=== PATIENT | male | born 1940 | race Caucasian/White ===

== ENCOUNTER 2018-04-23 12:51 | Inpatient (IN) ==
--- NOTE | 2018-04-23 14:12 | EKG Report ---
Test Performed on : 04/23/2018 1:43:08 PM Test Reason : SOB Blood Pressure : / mmHG Vent. Rate : 095 BPM Atrial Rate : 095 BPM P-R Int : 138 ms QRS Dur : 070 ms QT Int : 378 ms P-R-T Axes : 094 -52 052 degrees QTc Int : 475 ms Sinus rhythm. with occasional premature ventricular complexes. Left axis deviation Low voltage QRS Cannot rule out Inferior infarct (cited on or before 28-FEB-2009) Abnormal ECG When compared with ECG of 28-FEB-2009 10:48, Significant changes have occurred Unconfirmed Result
[2018-04-23 14:26] LABS: BASO# 0.01 X1000 (0.0-0.2); BASO% 0.1 % (0.0-0.8); EOS# 0.15 X1000 (0.0-0.7); EOS% 1.7 % (0.0-10.0); HEMATOCRIT 43.5 % (42.0-52.0); HEMOGLOBIN 12.4 g/dL (14.0-18.0); IMM GRAN# 0.04 X1000 (0.0-0.04); IMM GRAN% 0.5 % (0.0-0.5); LYMPH% 12.4 % (20.5-51.1); MCH 24.8 PG (27-31); MCHC 28.5 g/dL (33-37); MCV 86.8 FL (81-99); MONO# 0.96 X1000 (0.11-0.59); MONO% 10.8 % (1.7-9.3); MPV 11.1 FL (7.4-10.4); NEUT# 6.62 X1000 (1.4-6.5); NEUT% 74.5 % (42.2-75.2); PLT 195 X1000 (130-400); RBC 5.01 XMIL (4.7-6.1); WBC 8.88 X1000 (4.8-10.8)
--- NOTE | 2018-04-23 14:30 | Diag Imaging Result Doc PS360 ---
EXAM: CHEST-PORTABLE HISTORY: SOB TECHNIQUE: Portable chest COMPARISON: None. FINDINGS: The lungs are well expanded. The heart is not enlarged. The vessels are not distended. There are dense infiltrates in the right lung base. No effusion identified. IMPRESSION: Right lower lobe pneumonia Electronically signed by Brett Newby 04/23/2018 2:27 PM
[2018-04-23 14:31] LABS: INR 1.17; PROTIME 15.8 Seconds (11.0-16.0)
[2018-04-23 14:32] LABS: PTT 32.8 Seconds (22.3-41.8)
[2018-04-23 14:41] LABS: AGAP 7; ALB/GLOB RATIO 1.4; ALBUMIN 3.8 g/dL (3.5-5.0); ALKALINE PHOSPHATASE 110 U/L (32-122); BUN 19 mg/dL (8-22); CALCIUM 7.7 mg/dL (8.8-10.2); CHLORIDE 100 mmol/L (98-107); CK PROFILE 62 U/L (24-204); COSMO 280; CREATININE 0.9 mg/dL (0.7-1.2); ESTIMATED GFR > 60; GLUCOSE 108 mg/dL (70-104); GOT 33 U/L (10-34); GPT 39 U/L (10-44); POTASSIUM 5.2 mmol/L (3.5-5.1); SODIUM 139 mmol/L (136-145); TCO2 32 mmol/L (25-35); TOTAL BILIRUBIN 1.01 mg/dL (0.20-1.00); TOTAL PROTEIN 6.6 g/dL (6.3-8.3)
[2018-04-23] MEDS ORDERED: LASIX IV ONE (15:10)
--- NOTE | 2018-04-23 15:39 | PROVIDER DOCUMENTATION ---
This chart was entered by Gabriela Carranza Scribe, acting as scribe for Pete Newberry MD. HPI-Respiratory General - General Chief Complaint: Shortness of Breath Stated Complaint: gi bleed Time Seen by Provider: 04/23/18 14:11 Source: patient, family Allergies/Adverse Reactions: Patient Allergies Allergy/AdvReac Type Severity Reaction Status Date / Time grapefruit Allergy Unknown Verified 04/23/18 13:51 Home Medications: Home Medication List Medication Instructions Recorded Confirmed Last Taken Type Aspirin [Deneen Chewable Aspirin] 81 mg PO DAILY 04/23/18 04/23/18 04/23/18 History - History of Present Illness-Resp Nature of Presenting Problem: 78 y/o male patient presents with c/o shortness of breath , worsening x the last week with swelling in extremities. He also has orthopnea. No fever. He fell about a week ago and injured right side of chest wall. No cough Quality of Pain: reports: fullness Severity in ED: reports: moderate Onset/Duration: reports: 1 week ago Timing: reports: still present, intermittent Context: reports: recent URI Cough Quality/Degree: reports: dry cough Current Respiratory Medication Therapy: Initiated see nurses note Modifying Factors: worse with: exertion, coughing Associated Symptoms: reports: cough, shortness of breath, other (BLE edema and abdominal edema). denies: chest pain/soreness, wheezing Similar Symptoms Previously?: Yes Recently seen or treated by another doctor?: No Review of Systems - Adult - REVIEW OF SYSTEMS - ADULT Constitutional: reports: no symptoms reported Eyes: reports: no symptoms reported Ears, Nose, Mouth & Throat: reports: no symptoms reported Cardiovascular: denies: chest pain, palpitations Respiratory: reports: see HPI, cough, dyspnea on exertion, shortness of breath. denies: wheezing Gastrointestinal: reports: see HPI, other (abdominal edema). denies: abdominal pain, diarrhea, nausea, vomiting Genitourinary: reports: no symptoms reported Musculoskeletal: denies: back pain, neck pain Integumentary: reports: no symptoms reported Neurological: denies: dizziness/vertigo, headache/migraines Psychiatric: reports: no symptoms reported Endocrine: reports: no symptoms reported Hematologic/Lymphatic: reports: no symptoms reported Allergic/Immunologic: reports: no symptoms reported All Other Systems: Reviewed and Negative Past History - Adult - PAST MEDICAL HISTORY-ADULT Review of Records: reports: Nursing Assessment Review, Medications Reviewed, Social history reviewed & non-contributory. Major Childhood Illnesses: reports: denies history Cardiovascular: reports: denies history Respiratory: reports: denies history Gastrointestinal: reports: denies history Genitourinary: reports: prostatitis Musculoskeletal: reports: denies history Neurological: reports: denies history Psychiatric: reports: denies history Endocrine/Immune: reports: denies history Other Conditions: reports: cataract/glaucoma - PRIOR SURGERIES/PROCEDURES Surgical/Procedure History: reports: reviewed, not pertinent - IMMUNIZATION STATUS Childhood Immunizations: See Nurse Assessment Flu Vaccine: See Nurse Assessment - FAMILY HISTORY Family History: reviewed, not pertinent - SOCIAL HISTORY Smoking: greater than 1 pack/day Substance Use: alcohol Alcohol Use Frequency: occasionally Number of drinks per typical drinking period:: 2 drinks Living Situation: family Physical Exam-General - PHYSICAL EXAM-ADULT Initial Vital Signs Reviewed: Yes - CONSTITUTIONAL General Appearance: alert, mild distress, obese - EYES Eyes: PERRL/EOMI, pink conjunctivae - HEAD, EARS, NOSE, MOUTH & THROAT HENMT: moist mucous membranes - NECK Neck: non-tender, full range of motion, supple, normal inspection - RESPIRATORY Respiratory: decreased breath sounds, other (on oxygen via nasal canulla) - CARDIOVASCULAR Cardiovascular: normal peripheral pulses, regular rate, rhythm - GASTROINTESTINAL (ABDOMEN) Abdominal Exam: normal bowel sounds, soft, other (pitting edema in abdominal wall) - LYMPHATIC Lymphatic: no adenopathy - MUSCULOSKELETAL Back Exam: normal inspection, no CVA tenderness, no vertebral tenderness Extremity: normal range of motion, pedal edema (4 + bilateral), swelling (BLE edema 4+) - SKIN Integumentary: normal color, normal turgor, warm/dry - NEUROLOGIC Neurologic: grossly normal, no motor/sensory deficits - PSYCHIATRIC Psych/Mental Status: normal mood/affect, normal thought content, normal thought process, oriented x 3 Progress - PLAN OF CARE/RESULTS Progress/Plan/Lab Results: Vital Signs - 8 hr 04/23/18 13:05 04/23/18 13:58 04/23/18 14:13 Temperature 98.2 F 98.1 F Pulse Rate 62 84 17 L Respiratory Rate 20 18 86 H Blood Pressure 122/83 109/68 129/82 O2 Sat by Pulse Oximetry 95 96 96 Laboratory Results - last 24 hr 04/23/18 04/23/18 04/23/18 14:00 14:00 14:00 WBC 8.88 RBC 5.01 Hgb 12.4 L Hct 43.5 MCV 86.8 MCH 24.8 L MCHC 28.5 L RDW Std Deviation 17.0 H Plt Count 195 MPV 11.1 H Immature Gran % (Auto) 0.5 Neut % (Auto) 74.5 Lymph % (Auto) 12.4 L [place] % (Auto) 10.8 H Eos % (Auto) 1.7 Baso % (Auto) 0.1 Immature Gran # (Auto) 0.04 Neut # (Auto) 6.62 H Lymph # (Auto) 1.10 L [place] # (Auto) 0.96 H Eos # (Auto) 0.15 Baso # (Auto) 0.01 Segmented Neutrophils Not Reportable PT INR PTT (Actin FS) Sodium 139 Potassium 5.2 H Chloride 100 Carbon Dioxide 32 Anion Gap 7 BUN 19 Creatinine 0.9 Estimated GFR/1.73 m2 > 60 BUN/Creatinine Ratio 21 Glucose 108 H Calculated Osmolality 280 Calcium 7.7 L Total Bilirubin 1.01 H AST 33 ALT 39 Alkaline Phosphatase 110 Creatine Kinase 62 Troponin T Ncx-[id number] Pept 1464 H Total Protein 6.6 Albumin 3.8 Globulin 2.8 Albumin/Globulin Ratio 1.4 04/23/18 04/23/18 14:00 14:00 WBC RBC Hgb Hct MCV MCH MCHC RDW Std Deviation Plt Count MPV Immature Gran % (Auto) Neut % (Auto) Lymph % (Auto) [place] % (Auto) Eos % (Auto) Baso % (Auto) Immature Gran # (Auto) Neut # (Auto) Lymph # (Auto) [place] # (Auto) Eos # (Auto) Baso # (Auto) Segmented Neutrophils PT 15.8 INR 1.17 PTT (Actin FS) 32.8 Sodium Potassium Chloride Carbon Dioxide Anion Gap BUN Creatinine Estimated GFR/1.73 m2 BUN/Creatinine Ratio Glucose Calculated Osmolality Calcium Total Bilirubin AST ALT Alkaline Phosphatase Creatine Kinase Troponin T < 0.010 Fmp-X-Kofeoggfste Pept Total Protein Albumin Globulin Albumin/Globulin Ratio Orders Category Date Time Status Cardiac Monitoring DIRECTED Care 04/23/18 13:54 Active Oxygen Therapy- ED Nursing DIRECTED Care 04/23/18 13:54 Active Saline Loc NOW Care 04/23/18 13:54 Active CHEST-PORTABLE [RAD] Stat Exams 04/23/18 13:55 Completed CBC WITH ELECTRONIC DIFF [HEME] Stat Lab 04/23/18 14:00 Completed CK PROFILE [SP CHEM] Stat Lab 04/23/18 14:00 Completed COMPREHENSIVE METABOLIC PANEL [CHEM] Stat Lab 04/23/18 14:00 Completed PRO B-NATRIURETIC PEPTIDE Stat Lab 04/23/18 14:00 Completed PROTIME WITH INR [COAG] Stat Lab 04/23/18 14:00 Completed PTT [COAG] Stat Lab 04/23/18 14:00 Completed TROPONIN T Stat Lab 04/23/18 14:00 Completed URINALYSIS W/POSS RFLX CULT [URINALYSIS] Stat Lab 04/23/18 15:11 Uncollected Furosemide [Lasix] Med 04/23/18 15:10 Discontinued 60 mg IV NOW ONE CP/SOB/Palp >45 yrs of Age Stat Oth 04/23/18 13:53 Ordered EKG [EKG] Stat Ther 04/23/18 13:54 Draft Result Diagrams: 04/23/18 14:00 04/23/18 14:00 - REASSESSMENT Reassessment #1 Time Reassessed: 15:29 Status: unchanged - EKG 1 Time of EKG reading by physician:: 13:43 EKG Read and Signed by:: Pete Newberry EKG Interpretation (*Must complete 3 of following elements*): Abnormal Rate: 95 Rhythm: SR with occasional pvc [place]: left (deviation) QRS: other (low voltage qrs) [place] Interval: normal ST Wave: normal Comments: cannot rule out inferior infarct, age undetermined - XRAY 1 XRAY: Bilateral XRAY Study: Chest (EXAM: CHEST-PORTABLE HISTORY: SOB TECHNIQUE: Portable chest COMPARISON: None. FINDINGS: The lungs are well expanded. The heart is not enlarged. The vessels are not distended. There are dense infiltrates in the right lung base. No effusion identified. IMPRESSION: Right lower lobe pneumonia Electronically signed by Brett Newby 04/23/2018 2:27 PM 04/23 Interpreting Physician: Brett Newby MD Dictated Date/Time: 04/23/189 cc: Ubaldo Rodriguez MD;) Impression: Abnormal - CONSULTS/PCP/HOSPITALIST Notification #1 *Consult/PCP/Hospitalist*: hospitalist dr hickman /JOS Rodriguez Time Discussed: 15:29 Consult Disposition: Admit Departure - Departure Date of Disposition Decision: 04/23/18 Time of Disposition Decision: 15:39 DIAGNOSIS: Anasarca, Shortness of breath, Infiltrate of lung present on chest x-ray Fluid overload Qualifiers: Hypervolemia type: other Qualified Code(s): E87.79 - Other fluid overload Disposition: ADMITTED INPATIENT 09 Certified Medical Emergency: Emergent Condition: Serious Referrals and Follow-Ups: Marcia Hernandez MD [Primary Care Provider] - - Critical Care Note This patient required my direct & personal management of CC.: No Attestation - Physician/ DONNA Attestation Patient care was provided by Advanced Practice Provider:: No The physician spent face to face time with patient:: Yes Advanced Practice Provider documentation review:: Supervising physician onsite and consulted in the evaluation and care of this patient. The physician did have a face to face encounter with the patient. This chart was documented by the indicated scribe, (Gabriela Carranza Scribe) and accurately reflects the services I performed and decisions made by me, Pete Newberry MD, as attested by the provider's signature.
[2018-04-23] MEDS ORDERED: TYLENOL PO PRN (16:05)
[2018-04-23] MEDS ORDERED: ZOFRAN IV PRN (16:05)
--- NOTE | 2018-04-23 16:38 | HISTORY AND PHYSICAL ---
HISTORY OF PRESENT ILLNESS: This is a 78-year-old who has not been admitted here before. He has been seen by Dr. Valdivia, and I think most recently he has signed up to see Dr. Martell Asencio although he states he has not seen him yet. PAST MEDICAL HISTORY: 1. Prostate cancer, status post radical prostatectomy. 2. Glaucoma, left eye. 3. Suspect chronic obstructive pulmonary disease. Long history of smoking since age 18; 1-1/2 pack of cigarettes. No other known medical history. SURGICAL HISTORY: 1. Status post prostatectomy. 2. Status post tonsillectomy. 3. Adenoidectomy. SOCIAL HISTORY: Smokin-1/2 pack history since age 18. He stopped 04/15/2018 when he started feeling bad. He presents stating he feels bad and has swelling in his legs all the way up to his abdomen since 04/15/2018. It is now 04/23/2018. He does not drink any alcohol; 1 drink on 's Jennifer. He is of [place] descent. FAMILY HISTORY: Mother with history of CVA versus myocardial infarction. Not sure which, but she suddenly. History of breast cancer. History of vascular glaucoma. Father history of myocardial infarction. REVIEW OF SYSTEMS: General: He denies chest pain or palpitations. Respiratory: He reports a little shortness of breath but his main concern is his swelling in his lower extremities. He did not describe paroxysmal nocturnal dyspnea or any definite orthopnea. HEENT: He has history of glaucoma. He has not noticed any change recently or did not report any change in his vision or hearing acuity. No neck pain or adenopathy. He has not reported any weight gain or loss, but I am not sure he is recording it, but he does note that he has had more fluid on his lower extremities and abdomen. Gastrointestinal/Genitourinary: Not reported any change in his urinary habits or in his bowel movements. Endocrinologic/Hematologic: No significant history. Musculoskeletal/Neurologic: No focal complaints of pain or dysfunction. PHYSICAL EXAMINATION: GENERAL: In the emergency room, he is awake and alert. The family is at the bedside; I believe his daughter and son. VITAL SIGNS: His temperature is 98.1, pulse 91, respirations 20, blood pressure 123/99. Weight is 222 pounds. Height is 5 feet 7 inches. His pupils are equal. NECK: No distended neck veins. I could not appreciate any elevation of CVP. CVP appears to be less than 8 cm. I did not appreciate any cervical or supraclavicular adenopathy. Conjunctiva was pink. Mucous membranes were pink and moist. No thyromegaly. LUNGS: Clear in all lung delaney. Decreased breath sounds in both bases. PMI was diffuse but he appeared to be in sinus rhythm. I did not appreciate any murmur or obvious S3 or S4 gallop. ABDOMEN: Nontender. Slightly distended. Did not appreciate any shifting fluid or definite ascites but seems like you can palpate edema all the way up around his umbilicus area from his feet all the way up his thighs with pitting edema. SKIN: Warm and dry, and I would say he has some 1+ to 2+ pitting edema in his feet all the way up to his umbilicus. LABORATORIES: White blood cell count 8880, hematocrit 43, platelet count 195,000. Sodium 139, potassium 5.2, chloride 100. BUN 19, creatinine 0.9, calculated osmolality 280. Calcium 7.7, AST 33, ALT 39, alkaline phos 110. CPK was 62. ProBNP 1464. Total protein 6.6, albumin 3.8. ProTime 15.8 with an INR of 1.17. PTT was 32. Chest x-ray: Right lower lobe pneumonia. Appears to have a dense infiltrate in the right lung base. ASSESSMENT AND PLAN: 1. Right lower lobe pneumonia infiltrate. We will treat him for community-acquired pneumonia. Suspect he has underlying chronic obstructive pulmonary disease. 2. Chronic obstructive pulmonary disease exacerbation with pneumonia. 3. We need to look at his left ventricle and his right ventricle. He could very well have cor pulmonale and see why he has right-sided symptoms with mainly pitting edema. We will go ahead and diurese him some. I will put him on Lasix 40 mg q.12 IV. Will follow his creatinine and we need to follow his electrolytes including magnesium. We will check his T4, TSH, B12 and folate. We will check an a.m. cortisol level. Will also check troponin and CPK in the morning and follow up on another ProBNP. I am going to get an echocardiogram in the morning and look at his valvular function, left ventricular function, and right ventricular function. 4. History of glaucoma, aware. 5. History of prostate cancer, status post prostatectomy. 6. Note: He has no history of diabetes and his sugar is unremarkable; it is 108 right now. We will check a lipid profile as well in the morning to see where we are. cc: Alec Mayorga MD
[2018-04-23] MEDS ORDERED: PREVNAR 13 IM ONE (18:35)
[2018-04-23] MEDS: ROCEPHIN 2 GM in NS 50 ML IV SCH (18:39)
[2018-04-23 19:11] LABS: URINE SOURCE CLEAN CATCH
[2018-04-23 19:16] LABS: BILIRUBIN URINE NEGATIVE (NEGATIVE); BLOOD URINE MODERATE (NEGATIVE); COLOR STRAW; GLUCOSE URINE NEGATIVE (NEGATIVE); KETONE URINE NEGATIVE (NEGATIVE); LEUKOCYTES URINE NEGATIVE (NEGATIVE); NITRITE URINE NEGATIVE (NEGATIVE); PROTEIN URINE NEGATIVE (NEGATIVE); TURBIDITY URINE CLEAR (CLEAR); UROBILINOGEN URINE NORMAL (NORMAL)
[2018-04-23 19:17] LABS: UR EPITHELIAL CELLS <10 /HPF (<10); URINE BACTERIA NEGATIVE /HPF; URINE RBC <10 /HPF (<10); URINE WBC <10 /HPF (<10)
[2018-04-23] MEDS: DUONEB (A & A) INH SCH ×2 (19:55→23:35)
[2018-04-23] MEDS: PULMICORT INH SCH (19:55)
[2018-04-24] MEDS: DUONEB (A & A) INH SCH ×6 (03:35→22:58)
[2018-04-24 06:09] LABS: HEMOGLOBIN A1C 6.6 % (4.8-6.0)
[2018-04-24 06:15] LABS: BASO# 0.02 X1000 (0.0-0.2); BASO% 0.2 % (0.0-0.8); EOS# 0.17 X1000 (0.0-0.7); EOS% 1.9 % (0.0-10.0); HEMATOCRIT 41.1 % (42.0-52.0); HEMOGLOBIN 11.7 g/dL (14.0-18.0); IMM GRAN# 0.02 X1000 (0.0-0.04); IMM GRAN% 0.2 % (0.0-0.5); LYMPH% 11.3 % (20.5-51.1); MCH 24.9 PG (27-31); MCHC 28.5 g/dL (33-37); MCV 87.4 FL (81-99); MONO# 1.08 X1000 (0.11-0.59); MONO% 12.2 % (1.7-9.3); MPV 10.6 FL (7.4-10.4); NEUT# 6.55 X1000 (1.4-6.5); NEUT% 74.2 % (42.2-75.2); PLT 178 X1000 (130-400); RDW 16.7 % (11.5-14.5); WBC 8.84 X1000 (4.8-10.8)
[2018-04-24 06:26] LABS: AGAP 6; ALB/GLOB RATIO 0.9; ALBUMIN 3.3 g/dL (3.5-5.0); ALKALINE PHOSPHATASE 85 U/L (32-122); BUN 20 mg/dL (8-22); CHLORIDE 100 mmol/L (98-107); CK PROFILE 75 U/L (24-204); COSMO 283; CREATININE 1.1 mg/dL (0.7-1.2); ESTIMATED GFR > 60; GLUCOSE 91 mg/dL (70-104); GOT 21 U/L (10-34); GPT 31 U/L (10-44); MAGNESIUM 2.3 mg/dL (1.5-2.7); POTASSIUM 4.2 mmol/L (3.5-5.1); SODIUM 141 mmol/L (136-145); TCO2 35 mmol/L (25-35); TOTAL BILIRUBIN 1.09 mg/dL (0.20-1.00); TOTAL PROTEIN 6.9 g/dL (6.3-8.3)
[2018-04-24 06:27] LABS: INR 1.24; PROTIME 16.6 Seconds (11.0-16.0)
[2018-04-24 06:28] LABS: PTT 34.7 Seconds (22.3-41.8)
[2018-04-24 06:48] LABS: FREE T4 0.95 ng/dL (0.93-1.70); TSH 3.13 uIUmL (0.27-4.20)
[2018-04-24] MEDS: PULMICORT INH SCH ×2 (07:48→19:07)
[2018-04-24] MEDS: LASIX IV SCH ×2 (08:09→20:27)
[2018-04-24] MEDS: ASPIRIN PO SCH (08:09)
[2018-04-24] MEDS: LOVENOX SUBQ SCH (08:09)
[2018-04-24 08:37] LABS: EOS 2 % (1-10); HYPOCHROM 2+; LYMPHS 6 % (21-51); MONO 10 % (1-9); SEGS 82 % (42-75)
--- NOTE | 2018-04-24 09:02 | EKG Report ---
Test Performed on : 04/24/2018 08:08:57 AM Test Reason : chest pain Blood Pressure : / mmHG Vent. Rate : 109 BPM Atrial Rate : 133 BPM P-R Int : 074 ms QRS Dur : 054 ms QT Int : 326 ms P-R-T Axes : 000 -61 050 degrees QTc Int : 439 ms Sinus tachycardia. with short TX with occasional premature ventricular complexes. Left axis deviation Low voltage QRS Cannot rule out Anteroseptal infarct , age undetermined Abnormal ECG When compared with ECG of 23-APR-2018 13:43, (Unconfirmed) Minimal criteria for Anteroseptal infarct are now present Confirmed by Adriana CERVANTES, Gigi Antonio ([id number]) on 04/24/2018 7:32:59 PM
--- NOTE | 2018-04-24 10:22 | Diag Imaging Result Doc PS360 ---
EXAM: CHEST-2 VIEWS HISTORY: sob TECHNIQUE: Chest four views COMPARISON: 04/23/2018 FINDINGS: There are infiltrates in the lower right lung. Mild increased markings in the left base could represent a tiny infiltrate or a combination of atelectasis and scarring. The heart is not enlarged. No significant vascular distention. There are small pleural effusions. The lungs are hyperexpanded. IMPRESSION: Basilar infiltrates with small pleural effusions. Electronically signed by Brett Newby 04/24/2018 10:20 AM
--- NOTE | 2018-04-24 15:17 | ECHO REPORT ---
ORDER DATE: 04/23/2018 ECHOCARDIOGRAM: INDICATION: Shortness of breath, lower extremity edema. Tobacco abuse. FINDINGS: 1. Right atrium is mildly enlarged at 4.8 cm. 2. Moderate tricuspid regurgitation. RV systolic pressure of 78 suggesting pulmonary hypertension. 3. The right ventricle is enlarged with mild reduction in RV systolic function. 4. Mild pulmonic insufficiency. 5. Normal left atrial size with a volume index of 24. 6. No mitral valve prolapse. Trace mitral regurgitation. 7. Normal LV size, end-diastolic dimension of 5 cm. Normal wall thicknesses with a posterior and interventricular septal wall thickness of 0.9 cm each. Normal LV systolic function. Estimated EF is 65% with normal wall motion. 8. Aortic valve opens well on difficult views of the aortic valve. No evidence of stenosis or insufficiency. 9. Aorta appears normal in visualized segments. 10. No pericardial effusion seen. cc: MD Daniella Paulino CRNP Jagan Reddy, MD
--- NOTE | 2018-04-24 15:19 | Diag Imaging Result Doc PS360 ---
EXAM: US ABDOMEN-COMPLETE INDICATION: edema COMPARISON: None. FINDINGS: The gallbladder appears normal with no stones, wall thickening, or pericholecystic fluid. The common bile duct is normal in diameter. Sonographic Jiang's sign was reported to be negative. There is small volume ascites tracking around the liver and spleen. The liver is grossly unremarkable. Portal venous flow is hepatopetal. The pancreas is partially obscured by bowel gas. The visualized portion is unremarkable. The mid and distal aorta is obscured. The proximal portion of the aorta and the IVC are unremarkable. The spleen is unremarkable. The kidneys are grossly unremarkable. Pleural fluid is noted incidentally. IMPRESSION: 1.Small volume ascites. 2.Pleural effusion. 3.Otherwise, essentially unremarkable abdominal ultrasound. Electronically signed by Donnie Lei 04/24/2018 3:17 PM
[2018-04-24] MEDS: ROCEPHIN 2 GM in NS 50 ML IV SCH (16:31)
--- NOTE | 2018-04-24 16:45 | EKG Report ---
Test Performed on : 04/24/2018 4:38:46 PM Test Reason : Chest Pain Blood Pressure : / mmHG Vent. Rate : 105 BPM Atrial Rate : 105 BPM P-R Int : 150 ms QRS Dur : 072 ms QT Int : 342 ms P-R-T Axes : 076 -54 064 degrees QTc Int : 452 ms Sinus tachycardia. with premature atrial complexes. Left axis deviation Low voltage QRS Possible Inferior infarct , age undetermined Abnormal ECG When compared with ECG of 24-APR-2018 08:08, (Unconfirmed) No significant change was found Confirmed by Adriana CERVANTES, Gigi Antonio ([id number]) on 04/24/2018 7:56:24 PM
[2018-04-24] MEDS ORDERED: BREO ELLIPTA 200/25 MCG INH INH ONE (19:17)
[2018-04-24] MEDS: LEVAQUIN 500 MG/D5W 500 MG/100 ML IVPB IV SCH (20:26)
[2018-04-24] MEDS: BREO ELLIPTA 200/25 MCG INH INH SCH (22:58)
--- NOTE | 2018-04-25 01:44 | PROGRESS NOTE ---
DATE: 04/24/2018 SUBJECTIVE: A 78-year-old white male who I used to see a long time ago and apparently he changed the primary care doctors for a while and he came back at the request of Dr. Rivas who told me he made an appointment to see me next week. The patient was admitted to the hospital with shortness of breath, right lower lobe pneumonia, and generalized edema. He stopped smoking 2 weeks ago. PAST MEDICAL HISTORY: Reviewed. PAST SURGICAL HISTORY: Reviewed. MEDICATIONS: Reviewed. ALLERGIES: Reviewed. REVIEW OF SYSTEMS: Constitutional: Shortness of breath, cough, wheezing, snoring. No chest pain. Gastrointestinal: Abdominal pain, swelling, weight gain. Extremities: Both legs are swelling. Genitourinary: No difficulty in voiding. Neurologic: No focal symptoms or weakness. PHYSICAL EXAMINATION: Vital Signs: Temperature is 97 degrees, pulse is 32, blood pressure is 107/66, O2 sat is 87% on room air on 3 L. 95%. Weight 250 pounds. I's and O's negative -2 L. HEENT: Raspy voice, plethoric, dusky conjunctiva. Neck: Supple. Lungs: Poor air entry. Rales in the right base. Suboptimal exam. Heart: Distant heart sounds. Abdomen: Belly is soft, obese. Fluid thrill present. Extremities: With 3+ pedal edema in both legs. Neurologic: No obvious neurological deficits. LABORATORY INVESTIGATIONS: Postvoid residual less than 200. CBC: White cell count 8.8, hematocrit 41, platelets 178,000, PT 16, INR 1.24. SMA 7: Sodium 140, potassium 4.2, chloride 100, BUN 20, creatinine 1.1, glucose 143, A1c 6.6, calcium 8.0. LFTs were high, proBNP 1100, albumin 3.3, LDL 94, triglycerides 69, VLDL 14, HDL 42, B12 369, folate is normal. Thyroid functions normal. Cardizem levels were normal. Urinalysis negative for proteinuria. IMAGING: Abdominal ultrasound, small volume ascites, pleural effusion. Echocardiography LV function 65%. Severe pulmonary hypertension. Chest x-ray showed right lower lobe pneumonia. ASSESSMENT AND PLAN: 1. Generalized anasarca is due to cor pulmonale. 2. High risk for sleep apnea. We will closely monitor outpatient sleep studies. 3. Right lower lobe pneumonia. Currently on intravenous ceftriaxone, added on Levaquin. 4. Generalized anasarca, right heart failure. Optimize the oxygenation, added bronchodilators with Spiriva and Breo every 4 hours and off nebulizers. 5. Continue with Lasix 40 intravenous q.12. 6. Deep venous thrombosis prophylaxis with Lovenox. 7. History of prostate cancer, stable. 8. Check the blood gas and chest x-ray in the morning. 9. Labs were discussed with the patient. LEVEL OF DOCUMENTATION: 35 minutes. cc: Jason Asencio MD
[2018-04-25] MEDS: DUONEB (A & A) INH SCH ×6 (03:17→23:05)
[2018-04-25 05:04] LABS: ALLEN TEST YES; BE 13.3 mmoll (-3.0-3.0); BLOOD TYPE ARTERIAL; HCO3-(ACT) 35.2 mmoll (20.0-26.0); METHB 1.1 % (0.0-1.5); O2(CT) 12.9 mL/dL (15.0-23.0); PO2(98.6) 61 mmHg (60-100); SAMPLE BLOOD; SAO2 95.5 % (95.0-100.0); THB 10.2 g/dL (11.5-17.4); pH(98.6) 7.35 (7.35-7.45)
[2018-04-25 05:06] LABS: MODALITY CANNULA; O2HB 89.8 % (95.0-99.0); PCO2(98.6) 75 mmHg (35-45)
[2018-04-25] MEDS: BREO ELLIPTA 200/25 MCG INH INH SCH (07:48)
[2018-04-25] MEDS: LOVENOX SUBQ SCH (08:06)
[2018-04-25] MEDS: LASIX IV SCH ×2 (08:06→22:53)
[2018-04-25] MEDS: ASPIRIN PO SCH (08:07)
--- NOTE | 2018-04-25 10:59 | Diag Imaging Result Doc PS360 ---
EXAM: CHEST-2 VIEWS HISTORY: hypoxia TECHNIQUE: Chest two views COMPARISON: 04/24/2018 FINDINGS: The lungs remain hyperexpanded. There are small pleural effusions which persists. Increased interstitial markings in the lower lungs may be slightly less pronounced than they were on the prior study. No cardiomegaly. IMPRESSION: Mild interval improvement. Electronically signed by Brett Newby 04/25/2018 10:57 AM
[2018-04-25] MEDS: SPIRIVA INH SCH (11:15)
[2018-04-25] MEDS: ROCEPHIN 2 GM in NS 50 ML IV SCH (15:52)
--- NOTE | 2018-04-25 16:16 | Extremity Venous Study ---
PROCEDURE NAME: Venous U/S Bilateral Legs - 04/23/2018 STUDY: Bilateral lower extremity venous study. REQUESTING PHYSICIAN: DR. Newberry RUBY ENGINEER: Kiarra Davis RVT. INDICATION: Shortness of breath and edema. EQUIPMENT: [employer] Vivid E9 ultrasound system with a 9-LD transducer. FINDINGS: Images of bilateral lower extremity venous systems were obtained in both sagittal and transverse planes. Doppler was used to evaluate veins for spontaneity, phasicity, respiratory excursion, and digital augmentation. RESULTS: Technically difficult study secondary to edema in the legs. On this limited study, no obvious superficial or deep venous thrombosis noted. INTERPRETATION: Limited study secondary to edema, but no obvious superficial or deep venous thrombosis noted. cc: MD Daniella Horn CRNP Jagan Reddy, MD
[2018-04-25] MEDS: LEVAQUIN 500 MG/D5W 500 MG/100 ML IVPB IV SCH (22:53)
--- NOTE | 2018-04-25 23:32 | PROGRESS NOTE ---
DATE: 04/25/2018 SUBJECT: The patient is a little better and I have not seen him since 2012. He has bloated up. He has severe sleep apnea not been tested, he continues to smoke until and chest x- ray repeated looks like cor pulmonale and CHF and he has a swelling of feet and the belly. No chest pain. PHYSICAL EXAMINATION: Temperature is 98 degrees, pulse is 88, blood pressure is 129/62, room air 90%. I's and O's -2.5 L and his weight 248. HEENT: He has blue bloater syndrome and chest is bilateral air entry, decreased crackles, distant heart sounds. Belly is soft, obese. Fluid thrill present, 2+ pedal edema in both legs. INVESTIGATIONS: ABG pH is 7.35 pCO2 75, PO2 61 on 32%. ASSESSMENT AND PLAN: 1. Generalized anasarca due to right-sided heart failure, cor pulmonale with pulmonary hypertension with underlying sleep apnea and chronic obstructive pulmonary disease, continue on IV Lasix 40 q.12, oxygenation and evaluation of sleep study as an outpatient. 2. Tobacco abuse. Quit smoking. 3. Deep vein thrombosis prophylaxis with Lovenox. 4. Chronic obstructive pulmonary disease. Continue on bronchodilators and Breo and Spiriva. 5. Superficial bladder cancer stable. 6. Prostate cancer status post radical prostatectomy stable. Urine has moderate blood. Will discuss and continue improve the oxygenation and IV Lasix and then will follow up. LEVEL OF DOCUMENTATION: 25 minutes. cc: Jason Asencio MD MTDD
[2018-04-26] MEDS: DUONEB (A & A) INH SCH ×6 (03:05→22:49)
[2018-04-26] MEDS: BREO ELLIPTA 200/25 MCG INH INH SCH (07:26)
[2018-04-26] MEDS: SPIRIVA INH SCH (07:27)
[2018-04-26] MEDS: LASIX IV SCH ×2 (07:55→22:41)
[2018-04-26] MEDS: LOVENOX SUBQ SCH (08:01)
[2018-04-26] MEDS: ASPIRIN PO SCH (08:01)
--- NOTE | 2018-04-26 12:08 | PROGRESS NOTE ---
DATE: 04/26/2018 SUBJECTIVE: The patient says he is feeling a little bit better. Some of the swelling has gone down he feels and his breathing is doing better though he is still wheezing some. OBJECTIVE: Vital Signs: Blood pressure is 111/59, respirations 16, pulse 106, temperature 98.3 degrees Fahrenheit. HEENT: Normocephalic. EOMs intact. PERRLA. Throat clear. Lungs: Have scattered wheezes and rales. Heart: Regular rate and rhythm to sinus tachycardia without murmurs, gallops, or friction rubs. Abdomen: Soft. Active bowel sounds. No organomegaly or tenderness. The patient is overweight. Extremities: The patient does have generalized edema and has still 4+ pitting edema to lower extremities. DIAGNOSTIC DATA: Weight is actually up to 252 pounds, it was 248 pounds yesterday, 250 pounds on 04/24/2018. Echocardiogram was essentially normal. Chest x-ray did show some small bilateral pleural effusions. Blood gas yesterday showed a pCO2 of 75 and PO2 of 61. ASSESSMENT: Generalized anasarca, possibly due to right-sided heart failure, cor pulmonale with pulmonary hypertension. He has underlying sleep apnea and has chronic obstructive pulmonary disease. He is diuresing. PLAN: We will continue care with diuretics and bronchodilators. cc: MD Jason Grijalva Jr, MD
[2018-04-26] MEDS: ROCEPHIN 2 GM in NS 50 ML IV SCH (16:24)
[2018-04-26] MEDS: LEVAQUIN 500 MG/D5W 500 MG/100 ML IVPB IV SCH (22:41)
[2018-04-27] MEDS: DUONEB (A & A) INH SCH ×6 (03:16→22:25)
[2018-04-27] MEDS: SPIRIVA INH SCH (07:06)
[2018-04-27] MEDS: BREO ELLIPTA 200/25 MCG INH INH SCH (07:06)
[2018-04-27] MEDS: LOVENOX SUBQ SCH (08:01)
[2018-04-27] MEDS: ASPIRIN PO SCH (08:01)
[2018-04-27] MEDS: LASIX IV SCH ×2 (09:59→21:40)
--- NOTE | 2018-04-27 10:49 | PROGRESS NOTE ---
DATE: 04/27/2018 SUBJECTIVE: The patient says he is feeling better. He is diuresing well. Some of his swelling is going down. He had been wheezing some yesterday. He does not seem to be wheezing as much today. OBJECTIVE: Vital Signs: See vital signs which are stable. HEENT: He is normocephalic. EOMs intact. PERRLA. Throat clear. Lungs: Sound clear to auscultation today. Heart: Regular rate and rhythm without murmurs, gallops, or friction rubs. Abdomen: Soft. Active bowel sounds. No organomegaly or tenderness. Neurologic Examination: Intact grossly. Extremities: He still has some swelling to his lower extremities, about 4+ pitting edema. ASSESSMENT: 1. Generalized anasarca, possibly due to right-sided heart failure. 2. Pulmonary hypertension. 3. Sleep apnea. PLAN: Continue current medications. Weight is down 2 pounds to 250 pounds. Blood pressure 131/65, respirations 16, pulse 61, temperature 97.9 degrees Fahrenheit. Oxygen saturation is 94% on 4 L. cc: MD Jason Grijalva Jr, MD
[2018-04-27] MEDS: ROCEPHIN 2 GM in NS 50 ML IV SCH (16:00)
[2018-04-27] MEDS: LEVAQUIN 500 MG/D5W 500 MG/100 ML IVPB IV SCH (21:40)
[2018-04-28] MEDS: DUONEB (A & A) INH SCH ×6 (03:00→23:15)
[2018-04-28] MEDS: BREO ELLIPTA 200/25 MCG INH INH SCH (07:35)
[2018-04-28] MEDS: SPIRIVA INH SCH (07:36)
[2018-04-28 09:27] LABS: ALLEN TEST YES; BE 22.7 mmoll (-3.0-3.0); BLOOD TYPE ARTERIAL; HCO3-(ACT) 42.4 mmoll (20.0-26.0); METHB 0.7 % (0.0-1.5); O2(CT) 14.6 mL/dL (15.0-23.0); PO2(98.6) 54 mmHg (60-100); SAMPLE BLOOD; SAO2 91.9 % (95.0-100.0); THB 11.8 g/dL (11.5-17.4); pH(98.6) 7.46 (7.35-7.45)
[2018-04-28 09:30] LABS: MODALITY CANNULA; O2HB 87.8 % (95.0-99.0); PCO2(98.6) 71 mmHg (35-45)
[2018-04-28] MEDS: ASPIRIN PO SCH (10:30)
[2018-04-28] MEDS: LOVENOX SUBQ SCH (10:30)
[2018-04-28] MEDS: LASIX IV SCH ×2 (10:30→21:45)
[2018-04-28] MEDS: ROCEPHIN 2 GM in NS 50 ML IV SCH (16:56)
--- NOTE | 2018-04-28 20:57 | PROGRESS NOTE ---
DATE: 04/28/2018 SUBJECTIVE: Interval history was reviewed. Patient still has edema. He has a blue bloater face on oxygen, hypercarbia, no chest pain. OBJECTIVE: Temperature is 97 degrees, pulse is 97, 84% on room air, 2 L nasal cannula 92%HEENT: He has blue bloater willam. Neck: Is supple. Chest: Is occasional wheezing. Heart sounds are regular. Belly: Is soft, obese, 2+ pedal edema. I'S AND O'S: -430 mL. LABS: ABG pH is 7.46, pCO2 71, PO2 54 on 36%. ProBNP was 1100. ASSESSMENT AND PLAN: 1. Generalized anasarca due to cor pulmonale with underlying chronic obstructive pulmonary disease and sleep apnea. 2. Evaluation of home oxygen. 3. Outpatient setup with sleep studies. 4. Chronic obstructive pulmonary disease on intravenous ceftriaxone, Levaquin. 5. Continue IV Lasix. 6. Continue on bronchodilators with Breo and Spiriva. 7. Tobacco abuse. Quit smoking. 8. Prostate cancer, bladder cancer stable. LEVEL OF DOCUMENTATION: 25 minutes. cc: Jason Asencio MD MTDD
[2018-04-28] MEDS: LEVAQUIN 500 MG/D5W 500 MG/100 ML IVPB IV SCH (21:45)
[2018-04-29] MEDS: DUONEB (A & A) INH SCH ×6 (02:45→23:20)
[2018-04-29] MEDS: SPIRIVA INH SCH (07:29)
[2018-04-29] MEDS: BREO ELLIPTA 200/25 MCG INH INH SCH (07:29)
[2018-04-29] MEDS: LASIX IV SCH ×2 (10:06→22:03)
[2018-04-29] MEDS: ASPIRIN PO SCH (10:07)
[2018-04-29] MEDS: LOVENOX SUBQ SCH (10:07)
[2018-04-29] MEDS: ROCEPHIN 2 GM in NS 50 ML IV SCH (17:23)
[2018-04-29] MEDS: LEVAQUIN 500 MG/D5W 500 MG/100 ML IVPB IV SCH (22:03)
--- NOTE | 2018-04-29 22:25 | PROGRESS NOTE ---
DATE: 04/29/2018 SUBJECT: Patient is still swelling slowly diuresing, decreased shortness of breath. OBJECTIVE: Temperature is 98 degrees, pulse is 90, blood pressure 114/60 and I's and O's - 1.6 L. HEENT: Slightly cyanotic. Good air entry, distant heart sounds. Belly: Soft, obese, nontender. 1+ pedal edema. ASSESSMENT AND PLAN: 1. Generalized anasarca due to right-sided heart failure, underlying sleep apnea and chronic obstructive pulmonary disease. Continue fluid restriction, daily weights and IV Lasix twice daily. 2. History of bronchitis and on Levaquin, ceftriaxone . 3. Deep vein thrombosis prophylaxis. 4. Evaluation of home oxygen and also quit smoking and outpatient sleep study. Patient is anxious to go home. 5. History of bladder cancer, prostate cancer stable. LEVEL OF DOCUMENTATION: 25 minutes. cc: Jason Asencio MD
[2018-04-30] MEDS: DUONEB (A & A) INH SCH ×6 (02:40→23:15)
--- NOTE | 2018-04-30 07:24 | EKG Report ---
Test Performed on : 04/30/2018 02:22:36 AM Test Reason : SVT on tele Blood Pressure : / mmHG Vent. Rate : 101 BPM Atrial Rate : 125 BPM P-R Int : 000 ms QRS Dur : 076 ms QT Int : 364 ms P-R-T Axes : 000 -30 030 degrees QTc Int : 471 ms Sinus rhythm. with premature ventricular and fusion complexes. Left axis deviation Abnormal ECG When compared with ECG of 24-APR-2018 16:38, premature ventricular and fusion complexes. are new Confirmed by Adriana CERVANTES, Gigi Antonio ([id number]) on 05/01/2018 7:01:01 PM
[2018-04-30] MEDS: SPIRIVA INH SCH (07:31)
[2018-04-30] MEDS: BREO ELLIPTA 200/25 MCG INH INH SCH (07:32)
[2018-04-30] MEDS: ASPIRIN PO SCH (08:10)
[2018-04-30] MEDS: LOVENOX SUBQ SCH (08:10)
[2018-04-30] MEDS: LASIX IV SCH ×2 (09:40→22:47)
[2018-04-30] MEDS: ROCEPHIN 2 GM in NS 50 ML IV SCH (18:57)
[2018-04-30] MEDS: LEVAQUIN 500 MG/D5W 500 MG/100 ML IVPB IV SCH (22:47)
--- NOTE | 2018-05-01 02:45 | PROGRESS NOTE ---
DATE: 04/30/2018 SUBJECTIVE: Patient is slowly getting better. Face is getting pink. PHYSICAL EXAMINATION: Vital Signs: Temperature is 98 degrees, tachycardic. Vitals are stable. Pulse oximetry 95% on 3 L. Is and Os -4.3. Chest: Clear. Heart: Heart sounds are regular, tachycardic. Abdomen: Belly is soft. Extremities: There is 1+ edema in both legs. ASSESSMENT AND PLAN: 1. Right cor pulmonale due to chronic obstructive pulmonary disease and sleep apnea. Keep on oxygen 2 L. 2. Quit smoking. 3. Initiate vaccination protocol. 4. Initiate bronchodilators. 5. Low-salt diet and fluid restriction. 6. Deep venous thrombosis and gastrointestinal prophylaxis. 7. Continue intravenous Lasix, and intravenous Levaquin and ceftriaxone until the fluid is completely gone from both legs and we will follow up. LEVEL OF DOCUMENTATION: 25 minutes. cc: Jason Asencio MD
[2018-05-01] MEDS: DUONEB (A & A) INH SCH ×6 (03:15→23:10)
[2018-05-01] MEDS: SPIRIVA INH SCH (07:44)
[2018-05-01] MEDS: BREO ELLIPTA 200/25 MCG INH INH SCH (07:44)
[2018-05-01] MEDS: LASIX IV SCH ×2 (09:44→22:33)
[2018-05-01] MEDS: LOVENOX SUBQ SCH (09:44)
[2018-05-01] MEDS: ASPIRIN PO SCH (09:44)
[2018-05-01] MEDS: ROCEPHIN 2 GM in NS 50 ML IV SCH (15:52)
[2018-05-01] MEDS: LEVAQUIN 500 MG/D5W 500 MG/100 ML IVPB IV SCH (22:33)
[2018-05-02] MEDS: DUONEB (A & A) INH SCH ×2 (03:10→08:18)
--- NOTE | 2018-05-02 04:48 | PROGRESS NOTE ---
DATE: 05/01/2018 SUBJECTIVE: The patient is getting better. Excellent diuresis. Oxygenation is improving. EXAMINATION: Vital Signs: Temperature is 98 degrees. Vitals are stable. 98%. HEENT: Within normal limits. Chest: Clear. Heart: Sounds are regular. Abdomen: Belly is soft, tender. Decreased edema noted. ASSESSMENT AND PLAN: Generalized anasarca due to right cor pulmonale. We will arrange home oxygen tomorrow at 2 L. Continue IV Lasix and bronchodilators. Quit smoking. Outpatient sleep apnea workup. Continue IV antibiotics. Will follow up. LEVEL OF DOCUMENTATION: 15 minutes. cc: Jason Asencio MD
[2018-05-02 07:17] VITALS: BP 123/70
[2018-05-02] MEDS ORDERED: PREVNAR 13 IM ONE (08:09)
[2018-05-02] MEDS: ASPIRIN PO SCH (09:06)
[2018-05-02] MEDS: LOVENOX SUBQ SCH (09:08)
[2018-05-02] MEDS: LASIX IV SCH (09:09)
--- NOTE | 2018-05-04 20:44 | DISCHARGE SUMMARY ---
ADMISSION DATE: 04/23/2018 DISCHARGE DATE: 05/02/2018 DISCHARGING DIAGNOSIS: Generalized anasarca due to cor pulmonale with underlying chronic obstructive pulmonary disease and sleep apnea. SECONDARY DIAGNOSES: 1. History of superficial bladder cancer, status post Bacillus Calmette-Deanna treatment. 2. History of glaucoma. 3. History of prostate cancer, status post radical prostatectomy in 2006. 4. History of tobacco abuse for the last 50 years. 5. Metabolic syndrome. 6. History of left inguinal hernia Repair. BRIEF HISTORY: Please see the H and P that was done by Dr. Mayorga. In brief, he is a 78-year- old, white gentleman who was seen before by me, seen several years ago. Last seen in 2012. Was admitted to the hospital with generalized anasarca, shortness of breath, cough, wheezing, and a cyanotic face. HOSPITAL COURSE: The patient was given oxygen, bronchodilators, and IV Lasix. He was given fluid restriction, daily weights. Further workup revealed he did not have any liver failure or kidney failure. Urinalysis was negative for proteinuria. He had significant COPD along with the sleep apnea. He continues to smoke up until April 15. He was given a nicotine cessation program. The patient has significant hypoxemia with underlying COPD along with pulmonary hypertension, consistent with cor pulmonale. After diuresis improving the hypoxemia, his edema is much improved. He will qualify for home oxygen. At the time of discharge, his weight is 232 pounds. LABS: CBC: White cell count 8.8, hematocrit 41, platelets 178,000. PT 16, INR 1.2. ABG: The pH is 7.46, pCO2 is 71, PO2 54 on 36%. ProBNP 1100. Cardiac enzymes were normal. Triglycerides 69, cholesterol 94, HDL 42, LDL 48. B12 is 369, folate is normal. Thyroid function tests and cardiac enzymes were normal. Urinalysis was negative for protein. Abdominal ultrasound, small volume of ascites, pleural effusion. Venous ultrasound, no evidence of DVT noted. Echocardiography findings: Right atrium is 48 cm, pulmonary hypertension with 78 mm, the right ventricle is enlarged, the LV systolic function is 65%. DISCHARGE INSTRUCTIONS: 1. Flu vaccine 01/20/2018, pneumococcal vaccine 05/02/2018. 2. Aspirin 81 mg daily, Breo 1 puff daily, Lasix 40 daily, DuoNeb q.6, Spiriva 1 puff daily. 3. Quit smoking. 4. Up-to-date on vaccinations. 5. Follow up in my office in 2 weeks. cc: Jason Asencio MD MTDD
== END 2018-05-02 11:25 | disposition home health service (06) | DRG 291 ==
LOC: ED 12:51 → SUATTDRO 16:18 → SUPCPDRO 16:18 → 4N 16:18
PROVIDERS: ADMIT Internal Medicine; ATTEND Internal Medicine
CPT/HCPCS: 71010; 71020; 71045; 71046; 76700; 80053; 80061; 81001; 82533; 82550; 82607; 82746; 82805; 83036; 83721; 83735; 83880; 84439; 84443; 84484; 85025; 85610; 85730; 90670; 93005; 93010; 93306; 93970; 94640; 94761; 94799; 96374; 99285; A9270; J0696; J1650; J1940; J1956